=== PATIENT | female | born 1980 | race Hispanic/Latino ===

== ENCOUNTER 2023-09-20 07:16 | Day surgery (SDC) | payer BC ==
[2023-09-19 13:57] LABS: Hematocrit 43.6 % (36.0-45.0); Lymphocytes % 35.6 % (15.3-44.8); Platelets 293 thou/uL (152-406); RBC Red Blood Cell Count 5.19 M/uL (3.86-4.86)
[2023-09-19 14:08] LABS: Potassium 3.6 mEq/L (3.5-5.1)
--- NOTE | 2023-09-19 14:29 | RAD REPORT ---
EXAM DESCRIPTION: RAD - Chest Pa And Lat (2 Views) - 09/19/2023 1:47 pm CLINICAL HISTORY: Pre op pending shoulder mass removal. Hypertension COMPARISON: No comparisons TECHNIQUE: PA and lateral views of the chest were obtained. FINDINGS: The lungs are clear. Heart size is normal and central vasculature is within normal limits. No pleural effusion or pneumothorax seen. No acute bony finding noted. IMPRESSION: No acute cardiopulmonary process.
[2023-09-20] MEDS ORDERED: Ringers Lactate 1,000 ML IV ONE (07:51)
[2023-09-20] MEDS ORDERED: FENTANYL CITR 100 MCG/2 ML ONE (08:38)
[2023-09-20] MEDS ORDERED: propofoL 200 MG/20 ML VIAL IV ONE (08:38)
[2023-09-20] MEDS ORDERED: MIDAZOLAM HCL 2 MG/2 ML INJ ONE (08:39)
[2023-09-20] MEDS ORDERED: KETOROLAC 30 MG/ML INJ ONE (09:29)
[2023-09-20] MEDS ORDERED: dexAMETHasone 4 MG/ML VIAL ONE (09:34)
--- NOTE | 2023-09-20 10:21 | P.BOP ---
Preoperative diagnosis: right shoulder tender intramuscular mass Postoperative diagnosis: same Primary procedure: Excisional biopsy of large right shoulder tender intramuscular mass Estimated blood loss: <10cc Specimen: mass Findings: mass Anesthesia: General Transferred to: Recovery Room Condition: Good
[2023-09-20] MEDS ORDERED: Mastisol Adhesive Liq ONE (10:28)
[2023-09-20 10:37] VITALS: O2SAT 100
--- NOTE | 2023-09-20 11:41 | OP ---
Date of Procedure: 09/20/2023 Surgeon: Eldon Ramirez MD Preoperative Diagnosis: Right shoulder tender intramuscular mass. Postoperative Diagnosis: Right shoulder tender intramuscular mass. Procedure: Excisional biopsy of large shoulder tender intramuscular mass. Estimated Blood Loss: Less than 10 cc. Specimen: Mass. Findings: Intramuscular mass going down to the deltoid muscle. Anesthesia: General plus local. Indications: This is a case of a 42-year-old person with enlarging right intramuscular mass. The be nefits, alternatives, and risks of excision fully explained, which include, but not limited to infect ion, bleeding, damage to adjacent structures, anesthesia complication, recurrence, [place], and . Sh sumi also understands this may not relieve the symptoms. She might need more than one surgical interven tion. She understood and signed a consent. The area of concern was marked by me and the patient in the holding room. Description Of Procedure: The patient was brought to the operating room and placed in supine positio n. Anesthesia was done without complication. Shoulder area was prepped and draped in sterile fashio n after placing the patient in the lateral decubitus position. At that moment, after time-out, we ma de an incision in the area. Incision was carried down to fatty tissue until we find the muscle. The deltoid muscle was opened in direction of the fibers and then we see this intramuscular mass that wa s removed with the help of blunt dissection. Once we have the mass enucleated, we obtained hemostasi s with the help of 0 chromic and Bovie cauterizer. The mass was completely removed. The area was ir rigated. The muscle fibers were approximated after hemostasis was obtained with the help of chromic including the fascia and then after that, the subcutaneous tissue closed with 3-0 chromic. This was closed in layers and then after that, 3-0 chromic for the subcutaneous tissue and then subcuticular c losure with 4-0 PDS. Sponge count and instrument counts correct. The patient tolerated the procedur e well. The patient sent to recovery in stable condition. MINDA/HERNAN Voice ID: [id number] Report ID: [id number]
--- NOTE | 2023-09-20 11:43 | DS ---
Diagnosis: Right shoulder tender intramuscular mass. Procedure: Excisional biopsy of large right shoulder tender intramuscular mass. Disposition: Home. Activity: As tolerated. No heavy lifting. Follow up in my office in 1 week. Call for appointment at [phone]. Keep area dry until she see us again in the clinic. LEANDRA Voice ID: [id number] Report ID: [id number]
[2023-09-20 13:29] VITALS: BP 140/84; TEMP 97
--- NOTE | 2023-09-20 17:23 | EKG ---
Test Date: 2023-09-19 Test Time: 14:36:42 Crusher Operator: SRAVANI MEASUREMENT RESULTS: Intervals: Rate: 79 WI: 106 QRSD: 78 QT: 384 QTc: 440 Clarkson: P: 57 WI: 106 QRS: 72 T: 16 INTERPRETIVE STATEMENTS: Sinus rhythm with short WI Cannot rule out Anterior infarct, age undetermined Abnormal ECG No previous ECG available for comparison Electronically Signed On 09-20-23 17:20:16 [employer] [place] by Nabil Lopez
== END 2023-09-20 12:14 | disposition home or self-care (01) ==
LOC: OR 07:16
PROVIDERS: ATTEND Surgery
PROC: 0JBD0ZZ Excision of Right Upper Arm Subcutaneous Tissue and Fascia, Open Approach (ICD-10-PCS; principal; 2023-09-20 09:45)
DX: D17.21 Benign lipomatous neoplasm of skin and subcutaneous tissue of right arm (principal); I10 Essential (primary) hypertension; E66.9 Obesity, unspecified; Z68.31 Body mass index [BMI] 31.0-31.9, adult
CPT/HCPCS: 93005; 85025; 80048; 36415; 84703; 88305; 71046; 11406; 12034; J2704; J1100; J2250; J3010; J7120

== ENCOUNTER → 2024-02-09 | Day surgery (SDC) | payer BC ==
--- NOTE | 2024-02-09 11:29 | RAD REPORT ---
EXAM DESCRIPTION: US - Breast Core BX w/US Guidance - 02/09/2024 11:09 am CLINICAL HISTORY: ICD R 92.8 COMPARISON: ultrasound January 2024 TECHNIQUE: The risks, benefits alternatives to the procedure were explained to the patient and infor med consent obtained. Skin, subcutaneous and deeper tissues anesthetized with lidocaine. Under sonographic guidance,three 14 gauge vacuum assisted core biopsies of the mass within the outer upper left breast obtained. 2 centimeter specimens taken. Tissue given to pathology. Subsequently a localizing clip was placed into the mass. Patient experienced no immediate complication IMPRESSION: Vacuum assisted core biopsies of the left breast mass
== END ==
LOC: DS 10:00
PROVIDERS: ATTEND Nurse Practitioner Family
DX: N60.92 Unspecified benign mammary dysplasia of left breast (principal)
CPT/HCPCS: 19083; 88304; 88305